=== PATIENT | female | born 1985 | race African-American/Black ===

== ENCOUNTER 2017-09-06 01:48 | Emergency (ER) | payer SELFPAY ==
[~2017-09-06] VITALS: Ht 165.1 cm; Wt 57.1 kg
--- NOTE | 2017-09-06 01:54 | ED.ADGEN ---
Past History Past Medical History: Anemia, Anxiety, Sickle Cell Disease, Other Adult General Chief Complaint Chief Complaint "..I was at [facility] on [address].. and ended up with surgery for a perforated ulcer.. by Dr. Hoover.. .. on a week ago.... I got discharge with this tube. on Friday.... it had out 7,000 cc since my discharge.. I don't want to go back to [facility] .. " HPI HPI Patient is a 31 year old female who presents with above hx and complaints of continued abd. pain and continue drainage. Pt. reportedly had perforated peptic ulcer with free air in abd. Pt. under went surgery by Dr. Mekhi Hoover at [facility]. Pt has hx of Sickle Cell anemia with mean hemoglobin of 7.5. Pt. also has hx of Crohns, chronic neck and back pain, Arthralgia, allergic rhinitis, and recent Lt. jaw/face surgery. Pt. normally follows with Dr. Tesfaye in [place]. Has recently moved to the area. Pt. did eat czech fries this afternoon. Review of Systems Review of Systems Constitutional: Denies fever or chills [] Eyes: Denies change in visual acuity, redness, or eye pain [] HENT: Denies nasal congestion or sore throat [] Respiratory: Denies cough or shortness of breath [] Cardiovascular: No additional information not addressed in HPI [] GI: Complaints of abdominal pain, nausea,. as per HPI. vomiting, bloody stools or diarrhea [] : Denies dysuria or hematuria [] Musculoskeletal: Chronic back pain or joint pain [] Integument: Denies rash or skin lesions [] Neurologic: Denies headache, focal weakness or sensory changes [] Endocrine: Denies polyuria or polydipsia [] All other systems were reviewed and found to be within normal limits, except as documented in this note. Family History Family History Sickle Cell Current Medications Current Medications Current Medications Medications (Trade) Dose Ordered Sig/Jasvir Start Time Stop Time Status Last Admin Dose Admin Famotidine (Pepcid Vial) 20 mg 1X ONCE 09/06/17 02:45 09/06/17 02:46 DC 09/06/17 03:25 20 MG Fentanyl Citrate (Fentanyl 2ml Vial) 100 mcg 1X ONCE 09/06/17 08:00 09/06/17 08:01 DC 09/06/17 07:40 100 MCG Info (Do NOT chart on this entry -- for MONITORING) 1 each PRN DAILY PRN 09/06/17 03:00 09/06/17 08:01 DC Iohexol (Omnipaque 240 Mg/ml) 50 ml 1X ONCE 09/06/17 03:00 09/06/17 03:01 DC 09/06/17 04:55 50 ML Iohexol (Omnipaque 300 Mg/ml) 75 ml 1X ONCE 09/06/17 03:00 09/06/17 03:01 DC 09/06/17 04:55 75 ML Lactated Ringer's 1,000 ml @ 1,000 mls/hr Q1H 09/06/17 02:30 09/06/17 03:29 DC 09/06/17 03:24 1,000 MLS/HR Magnesium Hydroxide (Milk Of Magnesia) 2,400 mg 1X ONCE 09/06/17 06:15 09/06/17 06:21 DC 09/06/17 06:33 2,400 MG Morphine Sulfate (Morphine 10mg Syringe) 10 mg 1X ONCE 09/06/17 02:45 09/06/17 02:46 DC Ondansetron HCl (Zofran) 8 mg 1X ONCE 09/06/17 02:45 09/06/17 02:46 DC 09/06/17 03:25 8 MG Allergies Allergies Allergies Coded Allergies Type Severity Reaction Last Updated Verified clindamycin Allergy Severe Anaphylaxis 09/06/17 Yes morphine Allergy Mild 09/06/17 Yes amoxicillin Allergy Unknown 09/06/17 Yes Physical Exam Physical Exam Constitutional: Moderately acute distress, non-toxic appearance. [] HENT: Normocephalic, atraumatic, bilateral external ears normal, oropharynx moist, no oral exudates, nose normal. Lt. facial scar. - hx of surgery Eyes: PERRLA, EOMI, conjunctiva normal, no discharge. [] Neck: Normal range of motion, no tenderness, supple, no stridor. [] Cardiovascular:Heart rate regular rhythm, no murmur [] Lungs & Thorax: Bilateral breath sounds equal at apex with scattered wheezes on auscultation [] Abdomen: Bowel sounds decreased, soft, generalized tenderness, no masses, no pulsatile masses. Drain Rt. abd. ( Does no appear inflamed and drainage is clear). Drainage clear. Low abd. distention. Surgery scars. Skin: Warm, dry, no erythema, no rash. [] Back: No tenderness, no CVA tenderness. [] Extremities: No tenderness, no cyanosis, no clubbing, ROM intact, no edema. [] Neurologic: Alert and oriented X 3, normal motor function, normal sensory function, no focal deficits noted. [] Psychologic: Affect anxious, judgement normal, mood normal. [] Current Patient Data Vital Signs Vital Signs Date Time Temp Pulse Resp B/P (MAP) Pulse Ox O2 Delivery O2 Flow Rate FiO2 09/06/17 07:53 98.3 84 20 128/78 (95) 98 Room Air Lab Results Laboratory Tests Test 09/06/17 03:25 09/06/17 04:45 White Blood Count 9.0 x10^3/uL (4.0-11.0) Red Blood Count 4.08 x10^6/uL (3.50-5.40) Hemoglobin 10.6 g/dL (12.0-15.5) L Hematocrit 30.6 % (36.0-47.0) L Mean Corpuscular Volume 75 fL (79-100) L Mean Corpuscular Hemoglobin 26 pg (25-35) Mean Corpuscular Hemoglobin Concent 35 g/dL (31-37) Red Cell Distribution Width 17.3 % (11.5-14.5) H Platelet Count 620 x10^3/uL (140-400) H Neutrophils (%) (Auto) 57 % (31-73) Lymphocytes (%) (Auto) 29 % (24-48) Monocytes (%) (Auto) 7 % (0-9) Eosinophils (%) (Auto) 5 % (0-3) H Basophils (%) (Auto) 2 % (0-3) Neutrophils # (Auto) 5.2 x10^3uL (1.8-7.7) Lymphocytes # (Auto) 2.6 x10^3/uL (1.0-4.8) Monocytes # (Auto) 0.6 x10^3/uL (0.0-1.1) Eosinophils # (Auto) 0.4 x10^3/uL (0.0-0.7) Basophils # (Auto) 0.2 x10^3/uL (0.0-0.2) Reticulocyte Count (auto) 1.3 % (0.5-2.5) Prothrombin Time 9.9 SEC (9.4-11.4) Prothrombin Time INR 1.0 (0.9-1.1) PTT 26 SEC (23-33) Urine Collection Type Unknown Urine Color Straw Urine Clarity Clear Urine pH 6.0 Urine Specific [place] 1.010 Urine Protein Neg (NEG-TRACE) Urine Glucose (UA) Neg mg/dL (NEG) Urine Ketones (Stick) Neg mg/dL (NEG) Urine Blood Neg (NEG) Urine Nitrite Neg (NEG) Urine Bilirubin Neg (NEG) Urine Urobilinogen Dipstick 0.2 mg/dL (0.2 mg/dL) Urine Leukocyte Esterase Neg (NEG) Urine RBC Occ /HPF (0-2) Urine WBC 0 /HPF (0-4) Urine Squamous Epithelial Cells Mod /LPF Urine Bacteria Few /HPF (0-FEW) Sodium Level 141 mmol/L (136-145) Potassium Level 3.5 mmol/L (3.5-5.1) Chloride Level 103 mmol/L (98-107) Carbon Dioxide Level 31 mmol/L (21-32) Anion Gap 7 (6-14) Blood Urea Nitrogen 3 mg/dL (7-20) L Creatinine 0.7 mg/dL (0.6-1.0) Estimated GFR (Cockcroft-Gault) 119.7 Glucose Level 81 mg/dL (70-99) Calcium Level 8.4 mg/dL (8.5-10.1) L Total Bilirubin 0.2 mg/dL (0.2-1.0) Direct Bilirubin 0.1 mg/dL (0.0-0.2) Aspartate Amino Transferase (AST) 19 U/L (15-37) Alanine Aminotransferase (ALT) 25 U/L (14-59) Alkaline Phosphatase 59 U/L (46-116) Total Protein 7.3 g/dL (6.4-8.2) Albumin 3.0 g/dL (3.4-5.0) L Amylase Level 88 U/L (25-115) Lipase 78 U/L (73-393) Urine Opiates Screen Pos (NEG) Urine Methadone Screen Neg (NEG) Urine Barbiturates Neg (NEG) Urine Phencyclidine Screen Neg (NEG) Urine Amphetamine/Methamphetamine Neg (NEG) Urine Benzodiazepines Screen Pos (NEG) Urine Cocaine Screen Neg (NEG) Urine Cannabinoids Screen Pos (NEG) Urine Ethyl Alcohol Neg (NEG) Sickle Cell Screen Positive (NEGATIVE) EKG EKG [] Radiology/Procedures Radiology/Procedures My interpretation of Acute abd. shows no acute cardiopulmonary changes. Clips Rt. upper abd. Drain that circles into lower pelvis and back up again. Increased stool. CT of abd. shows [] Course & Med Decision Making Course & Med Decision Making Pertinent Labs and Imaging studies reviewed. (See chart for details) Pt. still refusing transfer to [facility]- Will plan placement at [facility] for her pain management and observation, possible surgery consult. [] Final Impression Final Impression 1. Post Op[]Pain 2. Hx. of Perforated Gastric Ulcer 3. 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 Hx. of Crohn's 5. Hx. of Chronic Pain 6. Hx. of Anemia- Microcytic 7. Marijuana and Tobacco Use 8. Malnutrition- alb.3.0 9. Constipation Problems: Dragon Disclaimer Dragon Disclaimer This electronic medical record was generated, in whole or in part, using a voice recognition dictation system. SAMAN HERNANDEZ MD September 06, 2017 01:54
[2017-09-06] MEDS ORDERED: IV RINGERS SOLUTION,LACTATED 1,000 ML IV SCH (02:30)
[2017-09-06] MEDS ORDERED: FAMOTIDINE 20 MG/2 ML VIAL IVP ONE (02:45)
[2017-09-06] MEDS ORDERED: MORPHINE SULFATE 10 MG/ML SYRINGE. SQ ONE (02:45)
[2017-09-06] MEDS ORDERED: ONDANSETRON PF 4 MG/2 ML VIAL. IV ONE (02:45)
[2017-09-06] MEDS ORDERED: CONTRAST GIVEN MC PRN (03:00)
[2017-09-06] MEDS ORDERED: IOHEXOL 240 MG/ML 50ML VIAL. PO ONE (03:00)
[2017-09-06] MEDS ORDERED: IOHEXOL 300 MG/ML 75 ML VIAL. IV ONE (03:00)
[2017-09-06 03:56] LABS: BARBITURATES NEG (NEG); BASO # 0.2 x10^3/uL (0.0-0.2); BASO % 2 % (0-3); BENZODIAZEPINES POS (NEG); CANNABINOIDS POS (NEG); EOS # 0.4 x10^3/uL (0.0-0.7); EOS % 5 % (0-3); HEMATOCRIT 30.6 % (36.0-47.0); HEMOGLOBIN 10.6 g/dL (12.0-15.5); LYMPH # 2.6 x10^3/uL (1.0-4.8); LYMPH % 29 % (24-48); MEAN CORPUSCULAR HEMOGLOBIN 26 pg (25-35); MEAN CORPUSCULAR HGB CONC 35 g/dL (31-37); MEAN CORPUSCULAR VOLUME 75 fL (79-100); METHADONE NEG (NEG); MONO # 0.6 x10^3/uL (0.0-1.1); MONO % 7 % (0-9); NEUT # 5.2 x10^3uL (1.8-7.7); NEUT % 57 % (31-73); OPIATES POS (NEG); PLATELET COUNT 620 x10^3/uL (140-400); RED BLOOD COUNT 4.08 x10^6/uL (3.50-5.40); RED CELL DISTRIBUTION WIDTH 17.3 % (11.5-14.5)
[2017-09-06 04:06] LABS: CALCIUM 8.4 mg/dL (8.5-10.1); CREATININE 0.7 mg/dL (0.6-1.0); DIRECT BILIRUBIN 0.1 mg/dL (0.0-0.2); GFR 119.7; POTASSIUM 3.5 mmol/L (3.5-5.1); TOTAL BILIRUBIN 0.2 mg/dL (0.2-1.0); TOTAL PROTEIN 7.3 g/dL (6.4-8.2)
[2017-09-06 04:13] LABS: BILIRUBIN,URINE NEG (NEG); CLARITY,URINE CLEAR; COLOR,URINE STRAW; GLUCOSE,URINE NEG (NEG)
[2017-09-06 04:14] LABS: BACTERIA,URINE FEW /HPF (0-FEW); NITRITE,URINE NEG (NEG); RBC,URINE OCC /HPF (0-2); SQUAMOUS EPITHELIAL CELL,UR MOD /LPF; UROBILINOGEN,URINE 0.2 mg/dL (0.2 mg/dL); WBC,URINE 0 /HPF (0-4)
[2017-09-06 04:18] LABS: AMPHETAMINE/METHAMPHETAMINE NEG (NEG); COCAINE NEG (NEG); PHENCYCLIDINE NEG (NEG)
--- NOTE | 2017-09-06 05:41 | RAD ---
CT SCAN OF THE ABDOMEN AND PELVIS WITH IV CONTRAST. History: Status post surgery for perforated ulcer last week has Crohn's disease and sickle cell Comparison:None. Procedure: Contiguous axial images of the abdomen and pelvis were performed after the administration of 75 cc of Omni 300 IV contrast and oral contrast. CT Abdomen with contrast: Findings: There is a percutaneous drain on the right. Liver: The common bile duct is dilated to 8 mm and the intrahepatic biliary tree is mildly dilated. There has been prior cholecystectomy. Spleen: Unremarkable Pancreas: Unremarkable Adrenal Glands: Unremarkable Kidneys: Unremarkable There is no mass or lymphadenopathy. There is no free air. There is no free fluid. CT Pelvis with Contrast: Findings: The urinary bladder appears normal. There is no free fluid. There is no lymphadenopathy. The appendix is not well seen. There is no pericolonic inflammation. The uterus and ovaries appear within normal limits. Impression: 1. Dilated common bile duct and intrahepatic biliary tree is not unusual in a postcholecystectomy patient could be chronic. 2. Percutaneous drain on the right. PQRS Compliance Statement: One or more of the following individualized dose reduction techniques were utilized for this examination: 1. Automated exposure control 2. Adjustment of the mA and/or kV according to patient size 3. Use of iterative reconstruction technique Electronically signed by: Olivier Miller III, MD (09/06/2017 5:38 AM) [id number]
[2017-09-06] MEDS ORDERED: MAGNESIUM HYDROXIDE 2,400 MG/30 ML ORAL.SUSP. PO ONE (06:15)
--- NOTE | 2017-09-06 07:47 | RAD ---
Acute abdomen series. History: Abdominal surgery 4 days earlier for perforated bowel and gastric ulcer. Crohn disease and sickle cell disease. Comparison: None. Findings: Frontal chest radiograph. Cardiac silhouette appears within normal limits for size. No pneumoperitoneum, pneumothorax, or large pleural effusion seen. No focal infiltrate is identified. Supine and upright AP views of the abdomen. Bowel gas pattern is nonspecific, without evidence of small bowel obstruction. Cholecystectomy clips are present. Surgical drain is present in the pelvis extending into the right abdomen. Oral contrast is seen in the colon. Impression: No acute abnormality identified in the chest or abdomen. Electronically signed by: Alin Jama MD (09/06/2017 7:44 AM) [facility]
[2017-09-06 07:53] VITALS: BP 128/78
== END 2017-09-06 08:00 | disposition short-term general hospital (02) ==
LOC: ER 01:48
DX: G89.18 Other acute postprocedural pain (principal); R10.9 Unspecified abdominal pain; G89.29 Other chronic pain; K50.90 Crohn's disease, unspecified, without complications; F12.10 Cannabis abuse, uncomplicated; E46 Unspecified protein-calorie malnutrition; K59.00 Constipation, unspecified; F41.9 Anxiety disorder, unspecified; Z72.0 Tobacco use; Z87.11 Personal history of peptic ulcer disease; Z98.890 Other specified postprocedural states; Z86.2 Personal history of diseases of the blood and blood-forming organs and certain disorders involving the immune mechanism; Z88.1 Allergy status to other antibiotic agents; Z88.5 Allergy status to narcotic agent
CPT/HCPCS: 36415; 74022; 74177; 80048; 80076; 80307; 81001; 82150; 83690; 85025; 85045; 85610; 85660; 85730; 96372; 96374; 96375; 96376; 99285; J2405; J3010; J7120; Q9966; Q9967; S0028; G0479

== ENCOUNTER 2017-09-26 00:57 | Emergency (ER) | payer SELFPAY ==
[~2017-09-26] VITALS: Ht 166.4 cm; Wt 57.7 kg
[2017-09-26 01:00] VITALS: BP 159/89
--- NOTE | 2017-09-26 01:01 | ED.ADGEN ---
Past History Past Medical History: Anemia, Anxiety, Constipation, Sickle Cell Disease, Other Past Surgical History: Other Smoking: Cigarettes Alcohol Use: None Drug Use: None, Marijuana Adult General Chief Complaint Chief Complaint " I am having abd. pain again... 02/11.. ate chicken and biscuits for dinner.... " You transfer me to [place] before when I was in here.. They kept me for a day or two..." HPI HPI Patient is a 31 year old female who presents with above hx and complaints of abd. pain. Pt. recent seen at [facility] on 08/26/17 for perforated ulcer. Pt. had laparoscopic surgery for closing the perforated ulcer. Pt. also had hx mandible surgery for oral and parotid infection. Pt. seen here at [facility] and transfer to [facility] for admit and surgery consult. Pt. has hx. given for Sickle Cell? Trait vs Disease. Pt. hx. of inflammatory bowel/Crohn's, microcytic anemia, marijuana and tobacco use, Constipation, chronic pain . Pt. denies ill contacts, immunosuppression, travel or truma. Pt. reported had normal stool to day. Patient's surgery suture lines are very well-healed. Patient pain appears to be generalized. No psoas or operators sign. Review of Systems Review of Systems Constitutional: Denies fever or chills [] Eyes: Denies change in visual acuity, redness, or eye pain [] HENT: Denies nasal congestion or sore throat [] Respiratory: Denies cough or shortness of breath [] Cardiovascular: No additional information not addressed in HPI [] GI: Complaints of generalized abdominal pain,. Denies nausea, vomiting, bloody stools or diarrhea [] : Denies dysuria or hematuria [] Musculoskeletal: Denies back pain or joint pain [] Integument: Denies rash or skin lesions [] Neurologic: Denies headache, focal weakness or sensory changes [] Endocrine: Denies polyuria or polydipsia [] All other systems were reviewed and found to be within normal limits, except as documented in this note. Family History Family History Mother- had sickle cell. Dad did not have sickle cell , but problems with Crohn 's disease Current Medications Current Medications Current Medications Medications (Trade) Dose Ordered Sig/Jasvir Start Time Stop Time Status Last Admin Dose Admin Famotidine (Pepcid) 20 mg 1X ONCE 09/26/17 02:00 09/26/17 02:02 DC Ketorolac Tromethamine (Toradol) 60 mg 1X ONCE 09/26/17 02:00 09/26/17 02:02 DC 09/26/17 02:30 60 MG Lactated Ringer's 1,000 ml @ 1,000 mls/hr Q1H 09/26/17 01:30 09/26/17 02:29 DC Magnesium Hydroxide (Milk Of Magnesia) 2,400 mg 1X ONCE 09/26/17 03:00 09/26/17 03:00 DC 09/26/17 02:42 2,400 MG Potassium Chloride (KCl Oral Soln) 40 meq 1X ONCE 09/26/17 03:00 09/26/17 03:00 DC 09/26/17 02:42 40 MEQ Allergies Allergies Allergies Coded Allergies Type Severity Reaction Last Updated Verified clindamycin Allergy Severe Anaphylaxis 09/06/17 Yes morphine Allergy Mild 09/06/17 Yes amoxicillin Allergy Unknown 09/06/17 Yes Physical Exam Physical Exam Constitutional: Reports acute abdomen pain and distress, non-toxic appearance. [ ] HENT: Normocephalic, atraumatic, bilateral external ears normal, oropharynx moist, no oral exudates, nose normal. Skin tag right ear Eyes: PERRLA, EOMI, conjunctiva normal, no discharge. [] Glasses Neck: Normal range of motion, no tenderness, supple, no stridor. [] Cardiovascular:Heart rate regular rhythm, no murmur [] Lungs & Thorax: Bilateral breath sounds equal at apexes with scattered wheezes on auscultation [] Abdomen: Bowel sounds decreased, distended, soft, no tenderness, no masses, no pulsatile masses. [] Old surgery scars well-healed. Patient denies vaginal discharge Skin: Warm, dry, no erythema, no rash. [] Back: No tenderness, no CVA tenderness. [] Extremities: No tenderness, no cyanosis, no clubbing, ROM intact, no edema. [] Scars on knees. No psoas or heeltap sign Neurologic: Alert and oriented X 3, normal motor function, normal sensory function, no focal deficits noted. [] Psychologic: Affect normal, judgement normal, mood normal. [] Current Patient Data Vital Signs Vital Signs Date Time Temp Pulse Resp B/P (MAP) Pulse Ox O2 Delivery O2 Flow Rate FiO2 09/26/17 01:00 98.9 83 20 100 Room Air Lab Results Laboratory Tests Test 09/26/17 00:57 09/26/17 01:20 09/26/17 01:50 POC Urine HCG, Qualitative hcg negative (Negative) Urine Collection Type Unknown Urine Color Straw Urine Clarity Clear Urine pH 7.0 Urine Specific [place] 1.015 Urine Protein Neg (NEG-TRACE) Urine Glucose (UA) Neg mg/dL (NEG) Urine Ketones (Stick) Neg mg/dL (NEG) Urine Blood Neg (NEG) Urine Nitrite Neg (NEG) Urine Bilirubin Neg (NEG) Urine Urobilinogen Dipstick 1 mg/dL (0.2 mg/dL) Urine Leukocyte Esterase Neg (NEG) Urine RBC Rare /HPF (0-2) Urine WBC Occ /HPF (0-4) Urine Squamous Epithelial Cells Occ /LPF Urine Bacteria Few /HPF (0-FEW) Urine Opiates Screen Neg (NEG) Urine Methadone Screen Neg (NEG) Urine Barbiturates Neg (NEG) Urine Phencyclidine Screen Neg (NEG) Urine Amphetamine/Methamphetamine Neg (NEG) Urine Benzodiazepines Screen Neg (NEG) Urine Cocaine Screen Neg (NEG) Urine Cannabinoids Screen Pos (NEG) Urine Ethyl Alcohol Neg (NEG) White Blood Count 8.6 x10^3/uL (4.0-11.0) Red Blood Count 4.33 x10^6/uL (3.50-5.40) Hemoglobin 11.4 g/dL (12.0-15.5) L Hematocrit 33.2 % (36.0-47.0) L Mean Corpuscular Volume 77 fL (79-100) L Mean Corpuscular Hemoglobin 26 pg (25-35) Mean Corpuscular Hemoglobin Concent 34 g/dL (31-37) Red Cell Distribution Width 19.6 % (11.5-14.5) H Platelet Count 388 x10^3/uL (140-400) Neutrophils (%) (Auto) 58 % (31-73) Lymphocytes (%) (Auto) 34 % (24-48) Monocytes (%) (Auto) 5 % (0-9) Eosinophils (%) (Auto) 2 % (0-3) Basophils (%) (Auto) 1 % (0-3) Neutrophils # (Auto) 5.0 x10^3uL (1.8-7.7) Lymphocytes # (Auto) 2.9 x10^3/uL (1.0-4.8) Monocytes # (Auto) 0.4 x10^3/uL (0.0-1.1) Eosinophils # (Auto) 0.1 x10^3/uL (0.0-0.7) Basophils # (Auto) 0.1 x10^3/uL (0.0-0.2) Sodium Level 144 mmol/L (136-145) Potassium Level 2.9 mmol/L (3.5-5.1) *L Chloride Level 104 mmol/L (98-107) Carbon Dioxide Level 27 mmol/L (21-32) Anion Gap 13 (6-14) Blood Urea Nitrogen 8 mg/dL (7-20) Creatinine 0.9 mg/dL (0.6-1.0) Estimated GFR (Cockcroft-Gault) 89.6 Glucose Level 78 mg/dL (70-99) Calcium Level 8.2 mg/dL (8.5-10.1) L Total Bilirubin 0.3 mg/dL (0.2-1.0) Direct Bilirubin 0.1 mg/dL (0.0-0.2) Aspartate Amino Transferase (AST) 18 U/L (15-37) Alanine Aminotransferase (ALT) 17 U/L (14-59) Alkaline Phosphatase 60 U/L (46-116) Lactate Dehydrogenase 176 U/L (81-234) Total Protein 7.5 g/dL (6.4-8.2) Albumin 3.9 g/dL (3.4-5.0) Lipase 78 U/L (73-393) EKG EKG [] Radiology/Procedures Radiology/Procedures My interpretation of acute abdomen film shows no free air under the diaphragm. Non-obstructive bowel gas pattern. Clips Rt. upper abd. Chest portion shows no acute cardiopulmonary changes. [] Course & Med Decision Making Course & Med Decision Making Pertinent Labs and Imaging studies reviewed. (See chart for details) Pt. currently upset at sticks for blood and IV sites. Pt. instructed to go on clear fluid diet only x 48 hrs. No solids or milk products. Must allow bowel rest. Push fruit juices. Zantac 150 mg twice a day. Return if any concerns. See Med. Clinic in am. Pt. currently asking to be discharged. Encouraged pt. to not smoke or use Marijuana. [] Final Impression Final Impression 1. Abdomen Pain 2. History of sickle cell disease-suspect she has sickle cell trait, nontender disease. 3. History of microcytic anemia- normal he globe and is 8, does not know her retic count ( Hgb- 11.4 tonight) 4. History of marijuana and tobacco use 5. History of constipation 6. History of migraines 7. History of gastritis ( with hx. perforated ulcer- repair 08/26/17 8. History of Crohn's 9. Chronic pain 10.Hypokalemia [] Dragon Disclaimer Dragon Disclaimer This electronic medical record was generated, in whole or in part, using a voice recognition dictation system. SAMAN HERNANDEZ MD September 26, 2017 01:00
[2017-09-26] MEDS ORDERED: IV RINGERS SOLUTION,LACTATED 1,000 ML IV SCH (01:30)
[2017-09-26] MEDS ORDERED: KETOROLAC 60 MG/2 ML VIAL. IM ONE (02:00)
[2017-09-26] MEDS ORDERED: FAMOTIDINE 20 MG TABLET PO ONE (02:00)
[2017-09-26 02:14] LABS: BASO # 0.1 x10^3/uL (0.0-0.2); BASO % 1 % (0-3); EOS # 0.1 x10^3/uL (0.0-0.7); EOS % 2 % (0-3); HEMATOCRIT 33.2 % (36.0-47.0); HEMOGLOBIN 11.4 g/dL (12.0-15.5); LYMPH # 2.9 x10^3/uL (1.0-4.8); LYMPH % 34 % (24-48); MEAN CORPUSCULAR HEMOGLOBIN 26 pg (25-35); MEAN CORPUSCULAR HGB CONC 34 g/dL (31-37); MEAN CORPUSCULAR VOLUME 77 fL (79-100); MONO # 0.4 x10^3/uL (0.0-1.1); MONO % 5 % (0-9); NEUT % 58 % (31-73); PLATELET COUNT 388 x10^3/uL (140-400); RED BLOOD COUNT 4.33 x10^6/uL (3.50-5.40); RED CELL DISTRIBUTION WIDTH 19.6 % (11.5-14.5); WHITE BLOOD COUNT 8.6 x10^3/uL (4.0-11.0)
[2017-09-26 02:20] LABS: BACTERIA,URINE FEW /HPF (0-FEW); BARBITURATES NEG (NEG); BENZODIAZEPINES NEG (NEG); BILIRUBIN,URINE NEG (NEG); CANNABINOIDS POS (NEG); CLARITY,URINE CLEAR; COCAINE NEG (NEG); COLOR,URINE STRAW; GLUCOSE,URINE NEG (NEG); METHADONE NEG (NEG); NITRITE,URINE NEG (NEG); OPIATES NEG (NEG); PHENCYCLIDINE NEG (NEG); RBC,URINE RARE /HPF (0-2); SQUAMOUS EPITHELIAL CELL,UR OCC /LPF; UROBILINOGEN,URINE 1 mg/dL (0.2 mg/dL); WBC,URINE OCC /HPF (0-4)
[2017-09-26 02:21] LABS: AMPHETAMINE/METHAMPHETAMINE NEG (NEG)
[2017-09-26 02:25] LABS: ALBUMIN 3.9 g/dL (3.4-5.0); CALCIUM 8.2 mg/dL (8.5-10.1); CREATININE 0.9 mg/dL (0.6-1.0); DIRECT BILIRUBIN 0.1 mg/dL (0.0-0.2); GFR 89.6; TOTAL BILIRUBIN 0.3 mg/dL (0.2-1.0); TOTAL PROTEIN 7.5 g/dL (6.4-8.2)
[2017-09-26 02:32] LABS: POTASSIUM 2.9 mmol/L (3.5-5.1)
[2017-09-26] MEDS ORDERED: RANI150T21 PO (02:38)
[2017-09-26] MEDS ORDERED: POTASSIUM CHLORIDE 20 MEQ/15 ML ORAL LIQUID. PO ONE (03:00)
[2017-09-26] MEDS ORDERED: MAGNESIUM HYDROXIDE 2,400 MG/30 ML ORAL.SUSP. PO ONE (03:00)
--- NOTE | 2017-09-26 03:06 | RAD ---
PA chest and AP upright supine abdomen x-rays HISTORY: Severe abdominal pain. FINDINGS: Heart and mediastinum are unremarkable. No pulmonary opacities or pleural effusions. No pneumoperitoneum. Cholecystectomy clips. Mild gas within the stomach, small bowel and large bowel, no dilated bowel loops or abnormal air-fluid levels to suggest obstruction. Small bowel diameter is a maximum of 3.5 cm which is at the upper limits of normal. Mild volume of stool at the splenic flexure. Bones unremarkable. IMPRESSION: No acute process in the chest. Mild gas within the GI tract without findings of bowel obstruction. Electronically signed by: Freddie Echeverria MD (09/26/2017 3:03 AM) [id number]
== END 2017-09-26 02:45 | disposition home or self-care (01) ==
LOC: ER 00:57
DX: R10.84 Generalized abdominal pain (principal); G89.29 Other chronic pain; E87.6 Hypokalemia; F41.9 Anxiety disorder, unspecified; F17.210 Nicotine dependence, cigarettes, uncomplicated; F12.10 Cannabis abuse, uncomplicated; G43.909 Migraine, unspecified, not intractable, without status migrainosus; K50.90 Crohn's disease, unspecified, without complications; Z86.2 Personal history of diseases of the blood and blood-forming organs and certain disorders involving the immune mechanism; Z88.1 Allergy status to other antibiotic agents; Z88.5 Allergy status to narcotic agent
CPT/HCPCS: 36415; 74022; 80048; 80076; 80307; 81001; 81025; 83615; 83690; 85025; 85045; 96372; 99285; J1885; G0479